=== PATIENT | female | born 1995 | race Caucasian/White ===

== ENCOUNTER 2022-07-30 11:38 | Inpatient (IN) | payer OTHER ==
[~2022-07-30] VITALS: Ht 167.6 cm; Wt 84.8 kg
[2022-07-30 12:35] LABS: BASOPHILS % (AUTO) 0.4 % (0.0-2.0); EOSINOPHILS % (AUTO) 0.1 % (1.0-6.0); HEMATOCRIT 45.2 % (36-46); HEMOGLOBIN 14.7 g/dL (12.0-16.0); LYMPHOCYTES # (AUTO) 1.4 K/uL (1.0-4.8); LYMPHOCYTES % (AUTO) 14.9 % (22.0-44.0); MEAN CORPUSCULAR HEMOGLOBIN 26.8 pg (26.0-34.0); MEAN CORPUSCULAR HGB CONC 32.6 G/dL (31.0-37.0); MEAN CORPUSCULAR VOLUME 82 fL (80-100); MONOCYTES # (AUTO) 0.5 K/uL (0.1-1.0); NEUTROPHILS # (AUTO) 7.7 K/uL (1.8-7.7); NEUTROPHILS % (AUTO) 79.6 % (40.0-70.0); PLATELET COUNT (AUTO) 313 K/uL (150-450); RED CELL DISTRIBUTION WIDTH 14.5 % (11.5-14.5)
[2022-07-30 12:54] LABS: ANION GAP 8 mmol/L (8-16); CALCIUM, TOTAL 9.2 mg/dL (8.8-10.5); CARBON DIOXIDE 25 mmol/L (22-29); CHLORIDE 105 mmol/L (98-107); CREATININE 1.03 mg/dL (0.60-1.30); GLUCOSE,RANDOM 133 mg/dL (70-110); POTASSIUM 4.3 mmol/L (3.5-5.1); SODIUM SERUM 138 mmol/L (136-145); UREA NITROGEN, BLOOD 14 mg/dL (7-18)
[2022-07-30 12:55] LABS: GLOMERULAR FILTR. RATE CALC > 60 mL/min (>60)
[2022-07-30 13:04] LABS: SALICYLATE 1.6 mg/dL (2.8-20.0)
[2022-07-30 13:07] LABS: ALANINE AMINOTRANSFERASE 19 U/L (12-78); ALBUMIN 3.5 g/dL (3.4-5.0); ALKALINE PHOSPHATASE 71 U/L (46-116); ASPARTATE AMINOTRANSFERASE 15 U/L (15-37); BILIRUBIN,TOTAL 0.2 mg/dL (0.1-1.0); TOTAL PROTEIN, SERUM 7.2 g/dL (6.4-8.2)
[2022-07-30 13:08] LABS: ACETAMINOPHEN < 2 mcg/mL (10-30)
[2022-07-30] MEDS ORDERED: ACETAMINOPHEN 325 MG TABLET PO PRN (13:30)
[2022-07-30 13:39] LABS: COVID AG,FIA SOURCE NASAL SWAB
[2022-07-30] MEDS ORDERED: QUET100T PO (13:39)
[2022-07-30] MEDS ORDERED: LUMA42CA PO (13:39)
[2022-07-30] MEDS ORDERED: HYDR50CA7 PO (13:39)
[2022-07-30 17:10] VITALS: BP 122/69
[2022-07-30 17:14] VITALS: BP 122/69
[2022-07-30] MEDS ORDERED: ZOLPIDEM TARTRATE 10 MG TABLET PO PRN (18:45)
[2022-07-30 22:53] VITALS: BP 130/74
[2022-07-31] MEDS: HALOPERIDOL 5 MG TABLET PO PRN ×3 (00:22→12:22)
[2022-07-31] MEDS: LORazepam 2 MG TABLET PO PRN ×3 (00:22→17:36)
[2022-07-31] MEDS ORDERED: MAGNESIUM HYDROXIDE SUSPENSION 30 ML UDCUP PO PRN (12:45)
[2022-07-31] MEDS ORDERED: NICOTINE 14 MG/24 HOUR PATCH TD PRN (12:45)
[2022-07-31] MEDS ORDERED: PETROLATUM,WHITE 28 GM JELLY TP PRN (12:45)
[2022-07-31] MEDS ORDERED: LOPERAMIDE HCL 2 MG CAPSULE PO PRN (12:45)
[2022-07-31] MEDS ORDERED: CloNIDine HCL 0.1 MG TABLET PO PRN (12:45)
[2022-07-31] MEDS ORDERED: GuaiFENesin/D-METHORPHAN [SUGAR-FREE] 200-20MG/10 ML SYRUP UDCUP PO PRN (12:45)
[2022-07-31] MEDS ORDERED: MAG HYDROX/AL HYDROX/SIMETH ES 30 ML SUSPENSION UDCUP PO PRN (12:45)
[2022-07-31] MEDS ORDERED: IBUPROFEN 400 MG TABLET PO PRN (12:45)
[2022-07-31] MEDS ORDERED: ONDANSETRON HCL 4 MG TABLET PO PRN (12:45)
[2022-07-31] MEDS ORDERED: ACETAMINOPHEN 325 MG TABLET PO PRN (12:45)
[2022-07-31] MEDS ORDERED: ALBUTEROL SULFATE HFA 90 MCG/PUFF 8 GM INHALER IH PRN (12:45)
[2022-07-31] MEDS: QUEtiapine FUMARATE 200 MG TABLET PO SCH (20:52)
[2022-08-01 08:33] VITALS: BP 106/62
[2022-08-01] MEDS: LORazepam 2 MG TABLET PO PRN ×3 (08:37→16:34)
[2022-08-01] MEDS: HALOPERIDOL 5 MG TABLET PO PRN ×3 (08:37→16:33)
[2022-08-01] MEDS: DOCUSATE SODIUM 100 MG CAPSULE PO PRN (16:33)
[2022-08-01] MEDS: QUEtiapine FUMARATE 200 MG TABLET PO SCH (20:35)
[2022-08-02] MEDS: DOCUSATE SODIUM 100 MG CAPSULE PO PRN (08:10)
[2022-08-02] MEDS: LORazepam 2 MG TABLET PO PRN (08:17)
[2022-08-02] MEDS: HALOPERIDOL 5 MG TABLET PO PRN (08:17)
[2022-08-02 08:32] VITALS: BP 130/65
[2022-08-02 16:34] VITALS: BP 127/70
[2022-08-02] MEDS: QUEtiapine FUMARATE 200 MG TABLET PO SCH (20:23)
[2022-08-03 08:06] VITALS: BP 103/67
[2022-08-03] MEDS: LORazepam 2 MG TABLET PO PRN (12:48)
[2022-08-03 16:03] VITALS: BP 122/72
[2022-08-03] MEDS: QUEtiapine FUMARATE 200 MG TABLET PO SCH (20:03)
[2022-08-04 08:15] VITALS: BP 137/82
[2022-08-04] MEDS: LORazepam 2 MG TABLET PO PRN (08:56)
[2022-08-04 12:44] LABS: APPEARANCE,URINE HAZY (CLEAR); BILIRUBIN,URINE NEGATIVE (NEGATIVE); GLUCOSE, URINE (UA) NEGATIVE (NEGATIVE); KETONES,URINE NEGATIVE (NEGATIVE); LEUKOCYTE ESTERASE ,URINE MODERATE (NEGATIVE); NITRATE,URINE NEGATIVE (NEGATIVE); OCCULT BLOOD,URINE NEGATIVE (NEGATIVE); SPECIFIC GRAVITIY, URINE 1.029 (1.003-1.030); UROBILINOGEN,URINE <=1.0 mg/dL (<=1.0)
[2022-08-04 12:47] LABS: PROTEIN,URINE 30-70 mg/dL (NEGATIVE)
[2022-08-04 12:53] LABS: AMPHET/METH SCREEN,URINE NEGATIVE (NEGATIVE); BARBITURATE SCREEN, URINE NEGATIVE (NEGATIVE); BENZODIAZEPINES SCREEN,URINE NEGATIVE (NEGATIVE); CANNABINOID SCREEN,URINE POSITIVE (NEGATIVE); COCAINE SCREEN,URINE NEGATIVE (NEGATIVE); METHADONE SCREEN, URINE NEGATIVE (NEGATIVE); OPIATE SCREEN,URINE NEGATIVE (NEGATIVE)
[2022-08-04 12:55] LABS: PHENCYCLIDINE SCREEN,URINE NEGATIVE (NEGATIVE)
[2022-08-04 13:12] LABS: RBC,URINE 0-2 /HPF (0-2)
[2022-08-04 13:13] LABS: BACTERIA,URINE Many /HPF (None Seen); SQUAMOUS EPITHELIAL CELL,UR Many /LPF (None Seen); YEAST,URINE Few /HPF (None Seen)
[2022-08-04 16:35] VITALS: BP 104/68
[2022-08-04] MEDS: QUEtiapine FUMARATE 200 MG TABLET PO SCH (20:43)
[2022-08-05] MEDS: LORazepam 2 MG TABLET PO PRN ×2 (04:30→10:34)
[2022-08-05 08:54] VITALS: BP 119/77
[2022-08-05 09:10] LABS: COVID AG,FIA SOURCE NASAL SWAB
[2022-08-05] MEDS ORDERED: QUET200T30 PO (09:52)
== END 2022-08-05 12:20 | disposition home or self-care (01) | DRG 885 ==
LOC: EMS 11:38 → 3EI 14:00 → EMS 16:36 → 3EC 07-31 09:47
PROVIDERS: ADMIT Psychiatry & Neurology Psychiatry; ATTEND Psychiatry & Neurology Psychiatry
DX: F25.1 Schizoaffective disorder, depressive type (principal); T42.4X2A Poisoning by benzodiazepines, intentional self-harm, initial encounter; F60.3 Borderline personality disorder; Z20.822 Contact with and (suspected) exposure to COVID-19; G47.00 Insomnia, unspecified; Z79.899 Other long term (current) drug therapy; Z87.891 Personal history of nicotine dependence; Z91.51 Personal history of suicidal behavior; Y92.89 Other specified places as the place of occurrence of the external cause; T14.91XA Suicide attempt, initial encounter
CPT/HCPCS: 80053; 80307; 81001; 84703; 85025; 87086; 87186; 93005; 99291; G0480; G0481